=== PATIENT | female | born 1935 | race Caucasian/White ===

== ENCOUNTER 2021-01-31 17:53 | Inpatient (IN) ==
[2021-01-31 19:12] LABS: Basophils # 0.1 10*3/uL (0.0-0.2); Basophils % 0.5 % (0.0-0.8); Eosinophils % 0.2 % (0.00-10.9); Hematocrit 42.4 VOL% (35.7-47.0); Hemoglobin 13.8 GM/DL (12.0-16.0); Immature Granulocytes % 0.8 %; Lymphocytes # 0.6 10*3/uL (1.4-4.0); Lymphocytes % 5.1 % (21.3-54.2); Mean Corpuscular HGB Conc 32.5 GM/DL (32-36); Mean Corpuscular Volume 82.7 FL (87-102); Mean Platelet Volume 10.5 FL (9.6-12.0); Monocytes % 3.1 % (1.7-12.7); Neutrophils % 90.3 % (38.7-73.9); Platelet Count 164 T/CUMM (130-400); Red Blood Count 5.13 MC/CUMM (3.8-5.5); Red Cell Distribution Width 13.5 % (9.3-17.3); White Blood Count 12.4 T/CUMM (4-12)
[2021-01-31 19:27] LABS: PT Patient Result 11.6 SECS (10.5-12.0); Partial Thromboplastin Time 25.3 SECS (23.8-32.1)
[2021-01-31 19:30] LABS: Albumin 3.4 G/DL (3.4-5.0); Bilirubin,Total 0.8 MG/DL (0.20-1.00); Calcium 8.8 MG/DL (8.5-10.1); Osmolality,Calculated 286.7 MOS/KG (273-304); Potassium 4.3 MMOL/L (3.5-5.1)
[2021-01-31] MEDS ORDERED: MORPHINE 2 MG/1 ML SYRINGE IV STA (19:37)
[2021-01-31] MEDS ORDERED: ONDANSETRON 4 MG/2 ML VIAL IV ONE (19:37)
[2021-01-31] MEDS ORDERED: hydrALAZINE 20 MG/1 ML VIAL IV STA (20:32)
[2021-01-31] MEDS: MORPHINE 2 MG/1 ML SYRINGE IV PRN (23:25)
[2021-01-31] MEDS: ONDANSETRON 4 MG/2 ML VIAL IV PRN (23:25)
[2021-02-01] MEDS: DEXTROSE 5% NACL 0.9% 1,000 ML IV SCH ×2 (04:15→14:40)
[2021-02-01] MEDS: MORPHINE 2 MG/1 ML SYRINGE IV PRN ×3 (04:15→23:32)
[2021-02-01 05:10] LABS: Basophils % 0.2 % (0.0-0.8); Hematocrit 39.5 VOL% (35.7-47.0); Hemoglobin 12.7 GM/DL (12.0-16.0); Immature Granulocytes % 0.5 %; Immature Granulocytes Absolute 0.06 #; Lymphocytes # 0.9 10*3/uL (1.4-4.0); Lymphocytes % 6.9 % (21.3-54.2); Mean Corpuscular HGB Conc 32.2 GM/DL (32-36); Mean Corpuscular Volume 83.7 FL (87-102); Mean Platelet Volume 11.4 FL (9.6-12.0); Monocytes % 6.5 % (1.7-12.7); Neutrophils % 85.9 % (38.7-73.9); Platelet Count 185 T/CUMM (130-400); Red Blood Count 4.72 MC/CUMM (3.8-5.5); Red Cell Distribution Width 13.6 % (9.3-17.3); White Blood Count 12.4 T/CUMM (4-12)
[2021-02-01 05:48] LABS: Albumin 3.1 G/DL (3.4-5.0); Bilirubin,Total 1.6 MG/DL (0.20-1.00); Calcium 8.8 MG/DL (8.5-10.1); Osmolality,Calculated 287.7 MOS/KG (273-304); Potassium 4.3 MMOL/L (3.5-5.1); Total Protein 6.7 G/DL (6.4-8.2)
[2021-02-01] MEDS ORDERED: GLUCAGON 1 MG VIAL IM PRN (07:59)
[2021-02-01] MEDS ORDERED: DEXTROSE 50% 25 GM/50 ML VIAL IV PRN (07:59)
[2021-02-01] MEDS: lisinopriL 20 MG TABLET PO SCH ×3 (08:33→21:25)
[2021-02-01] MEDS: CITALOPRAM 20 MG TABLET PO SCH (08:34)
[2021-02-01] MEDS: GLIMEPIRIDE 2 MG TABLET PO SCH ×2 (08:34→17:30)
[2021-02-01] MEDS ORDERED: PANTOPRAZOLE 40 MG VIAL IV SCH (09:00)
[2021-02-01] MEDS ORDERED: SIMVASTATIN 10 MG TABLET PO SCH (09:00)
[2021-02-01] MEDS ORDERED: LIDOCAINE 1% 5 ML VIAL ONE (10:56)
[2021-02-01] MEDS ORDERED: ROPIVACAINE 0.5% 30 ML VIAL ONE (10:56)
[2021-02-01] MEDS ORDERED: DEXAMETHASONE 4 MG/1 ML VIAL ONE (10:56)
[2021-02-01] MEDS ORDERED: ceFAZolin 2,000 MG/50 ML DUPLEX IV ONE (11:00)
[2021-02-01] MEDS ORDERED: fentaNYL 100 MCG/2 ML VIAL ONE (11:02)
[2021-02-01] MEDS ORDERED: ePHEDrine 50 MG/ML VIAL ONE (11:42)
[2021-02-01] MEDS ORDERED: MAGNESIUM HYDROXIDE SUSP 30 ML UDCUP PO PRN (11:54)
[2021-02-01] MEDS ORDERED: BISACODYL 10 MG SUPP RECTAL PRN (11:54)
[2021-02-01] MEDS ORDERED: LACTULOSE 20 GM/30 ML UDCUP PO PRN (11:54)
[2021-02-01] MEDS ORDERED: PROMETHAZINE 25 MG/1 ML VIAL IM PRN (11:54)
[2021-02-01] MEDS ORDERED: diphenhydrAMINE CAP 25 MG CAPSULE PO PRN (11:54)
[2021-02-01] MEDS ORDERED: MORPHINE 2 MG/1 ML SYRINGE IV PRN (12:03)
[2021-02-01] MEDS ORDERED: LIDOCAINE 2% 5 ML VIAL ONE ×2 (12:59→13:00)
[2021-02-01] MEDS ORDERED: BUPIVACAINE SPINAL 0.75% 2 ML AMP SPINAL ONE (12:59)
[2021-02-01] MEDS ORDERED: PHENYLEPHRINE 1 MG/10 ML SYRINGE IV ONE (13:00)
[2021-02-01] MEDS ORDERED: propofoL 200 MG/20 ML VIAL IV ONE (13:00)
[2021-02-01] MEDS: LACTATED RINGERS 1,000 ML IV SCH (13:55)
[2021-02-01] MEDS: ENOXAPARIN 40 MG/0.4 ML SYRINGE SUBCUT SCH (21:25)
[2021-02-02] MEDS: LACTATED RINGERS 1,000 ML IV SCH (03:15)
[2021-02-02 05:52] LABS: Basophils % 0.2 % (0.0-0.8); Hematocrit 30.2 VOL% (35.7-47.0); Immature Granulocytes % 0.6 %; Immature Granulocytes Absolute 0.08 #; Lymphocytes # 1.2 10*3/uL (1.4-4.0); Lymphocytes % 9.1 % (21.3-54.2); Mean Corpuscular HGB Conc 31.8 GM/DL (32-36); Mean Corpuscular Volume 85.3 FL (87-102); Mean Platelet Volume 11.4 FL (9.6-12.0); Monocytes % 9.8 % (1.7-12.7); Neutrophils % 80.3 % (38.7-73.9); Red Blood Count 3.54 MC/CUMM (3.8-5.5); Red Cell Distribution Width 14.1 % (9.3-17.3)
[2021-02-02 05:55] LABS: Hemoglobin 9.6 GM/DL (12.0-16.0); Platelet Count 133 T/CUMM (130-400)
[2021-02-02 06:17] LABS: Calcium 8.5 MG/DL (8.5-10.1); Osmolality,Calculated 287.3 MOS/KG (273-304); Potassium 4.2 MMOL/L (3.5-5.1)
[2021-02-02 06:19] LABS: Hypochromasia Slight; Microcytosis Slight; Platelet Estimate Normal
[2021-02-02] MEDS: lisinopriL 20 MG TABLET PO SCH ×2 (08:34→21:48)
[2021-02-02] MEDS: GLIMEPIRIDE 2 MG TABLET PO SCH ×2 (08:34→17:07)
[2021-02-02] MEDS: CITALOPRAM 20 MG TABLET PO SCH (08:35)
[2021-02-02] MEDS: PANTOPRAZOLE 40 MG TABLET PO SCH (08:35)
[2021-02-02] MEDS: DEXTROSE 5% NACL 0.9% 1,000 ML IV SCH ×2 (08:36→17:06)
[2021-02-02] MEDS ORDERED: TUBERCULIN SKIN TEST 0.1 ML SYRINGE INTRADERM ONE (10:00)
[2021-02-02] MEDS: SKIN HEALING OINT (AQUAPHOR) 50 GM TUBE TOP SCH (11:26)
[2021-02-02] MEDS: ONDANSETRON 4 MG/2 ML VIAL IV PRN (11:26)
[2021-02-02] MEDS: MORPHINE 2 MG/1 ML SYRINGE IV PRN (16:39)
[2021-02-02] MEDS ORDERED: SIMVASTATIN 10 MG TABLET PO SCH (21:00)
[2021-02-02] MEDS: ENOXAPARIN 40 MG/0.4 ML SYRINGE SUBCUT SCH (21:48)
[2021-02-03] MEDS: DEXTROSE 5% NACL 0.9% 1,000 ML IV SCH ×2 (05:47→13:15)
[2021-02-03] MEDS: LACTATED RINGERS 1,000 ML IV SCH ×2 (05:48→05:53)
[2021-02-03 06:27] LABS: Basophils # 0.1 10*3/uL (0.0-0.2); Basophils % 0.6 % (0.0-0.8); Eosinophils # 0.2 10*3/uL (0.0-0.87); Eosinophils % 1.5 % (0.00-10.9); Hematocrit 27.5 VOL% (35.7-47.0); Hemoglobin 8.5 GM/DL (12.0-16.0); Immature Granulocytes % 0.6 %; Immature Granulocytes Absolute 0.06 #; Lymphocytes # 1.5 10*3/uL (1.4-4.0); Lymphocytes % 14.2 % (21.3-54.2); Mean Corpuscular HGB Conc 30.9 GM/DL (32-36); Mean Corpuscular Volume 87.3 FL (87-102); Mean Platelet Volume 11.2 FL (9.6-12.0); Monocytes % 11.3 % (1.7-12.7); Neutrophils % 71.8 % (38.7-73.9); Platelet Count 114 T/CUMM (130-400); Red Blood Count 3.15 MC/CUMM (3.8-5.5); Red Cell Distribution Width 14.2 % (9.3-17.3); White Blood Count 10.6 T/CUMM (4-12)
[2021-02-03] MEDS: GLIMEPIRIDE 2 MG TABLET PO SCH (08:48)
[2021-02-03] MEDS: CITALOPRAM 20 MG TABLET PO SCH (08:49)
[2021-02-03] MEDS: lisinopriL 20 MG TABLET PO SCH (08:51)
[2021-02-03] MEDS: PANTOPRAZOLE 40 MG TABLET PO SCH (08:52)
[2021-02-03] MEDS: SKIN HEALING OINT (AQUAPHOR) 50 GM TUBE TOP SCH (09:25)
[2021-02-03 11:38] VITALS: BP 115/49
[2021-02-03] MEDS ORDERED: INFLUENZA VIRUS VACCINE 0.5 ML SYRINGE IM ONE (12:00)
== END 2021-02-03 15:10 | disposition swing bed (61) | DRG 481 ==
LOC: EDBD → EDUNIT# → N.ED 17:53 → N.EDINP 19:45 → N.3E 21:35
PROVIDERS: ADMIT Family Medicine; ATTEND Family Medicine